=== PATIENT | male | born 1990 | race American Indian/Alaskan Native ===

== ENCOUNTER 2016-07-10 09:01 | Emergency (ER) | payer SELFPAY ==
[2016-07-10 09:32] VITALS: BP 125/83
== END 2016-07-10 09:31 | disposition left against medical advice (07) ==
LOC: ED 09:01
DX: S01.311D Laceration without foreign body of right ear, subsequent encounter (principal); Z53.21 Procedure and treatment not carried out due to patient leaving prior to being seen by health care provider

== ENCOUNTER 2016-08-23 08:37 | Emergency (ER) | payer SELFPAY ==
[2016-08-23 08:47] VITALS: BP 134/80
--- NOTE | 2016-08-23 10:21 | Emergency Department Report ---
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 PT states when he shaves, he breaks out in a rash. PT states he had a shave on Sunday and now he has bumps to his face. PT requesting a note so he does not have to shave for work. MD Complaint: rash -: Gradual, days(s) Location: face Consistency: intermittent Improves with: other (not shaving ) Worsens with: other (after shaving ) Associated Symptoms: rash. denies: fever/chills, nausea/vomiting Treatments Prior to Arrival: none - Related Data Previous Rx's Medication Instructions Recorded Last Taken Type Amoxicillin [Amoxicillin TAB] 875 mg PO BID #14 tablet 02/29/16 Unknown Rx Tobramycin/Dexamethasone [Tobradex 1 - 2 drop OP Q4HR #1 drops.susp 02/29/16 Unknown Rx Eye Drops 0.3/0.1%] Allergies Allergy/AdvReac Type Severity Reaction Status Date / Time shellfish derived Allergy Itching Verified 02/29/16 14:16 ED Review of Systems ROS: Stated complaint: RASH Other details as noted in HPI Constitutional: denies: chills, fever ENT: denies: ear pain, throat pain Gastrointestinal: denies: vomiting Skin: as per HPI, rash ED Past Medical Hx - Past Medical History Previous Medical History?: No - Surgical History Past Surgical History?: Yes Additional Surgical History: Ear - Right - Social History Smoking Status: Never Smoker Substance Use Type: Alcohol - Medications Home Medications: Home Medications Medication Instructions Recorded Confirmed Last Taken Type Amoxicillin [Amoxicillin TAB] 875 mg PO BID #14 tablet 02/29/16 Unknown Rx Tobramycin/Dexamethasone [Tobradex 1 - 2 drop OP Q4HR #1 drops.susp 02/29/16 Unknown Rx Eye Drops 0.3/0.1%] ED Physical Exam - General Limitations: No Limitations General appearance: alert, in no apparent distress - Head Head exam: Present: atraumatic, normocephalic, other (folliculitis noted to miryam mandible ) - ENT ENT exam: Present: normal exam, normal orophraynx, mucous membranes moist, normal external ear exam (scar to R helix ) - Neck Neck exam: Present: normal inspection, full ROM. Absent: tenderness, lymphadenopathy - Respiratory Respiratory exam: Absent: respiratory distress, accessory muscle use - Cardiovascular Cardiovascular Exam: Present: regular rate, normal rhythm - Extremities Exam Extremities exam: Present: normal inspection, full ROM - Back Exam Back exam: Present: normal inspection, full ROM - Neurological Exam Neurological exam: Present: alert, oriented X3 - Psychiatric Psychiatric exam: Present: normal affect, normal mood - Skin Skin exam: Present: warm, dry, other (scattered folliculits to face ) ED Course Vital Signs 08/23/16 08:43 Temperature 98.1 F Pulse Rate 66 Respiratory 18 Rate Blood Pressure 134/80 O2 Sat by Pulse 100 Oximetry - Reevaluation(s) Reevaluation #1: 08/23/16 10:21 PT aware he will need to follow up with PCP for group home excuse. PT verbalizes understanding. - Pulse Oximetry Interpretation Digit-Finger Initial Pulse Oximetry Readin Actions Taken: none ED Medical Decision Making - Differential Diagnosis folliciulits, acne Critical Care Time: No Critical care attestation.: If time is entered above; I have spent that time in minutes in the direct care of this critically ill patient, excluding procedure time. ED Disposition Clinical Impression: Folliculitis Disposition: DISCHARGED TO HOME OR SELFCARE Is pt being admited?: No Does the pt Need Aspirin: No Condition: Stable Instructions: Folliculitis (ED) Additional Instructions: Follow up with PCP for group home work excuse Warm compresses to areas of folliculitis - no shaving at this time. do not pick at skin Referrals: PRIMARY CARE, [Primary Care Provider] - 3-5 Days Forms: Work/School Release Form(ED) Time of Disposition: 10:23
== END 2016-08-23 10:32 | disposition home or self-care (01) ==
LOC: ED 08:37
DX: L73.9 Follicular disorder, unspecified (principal)
CPT/HCPCS: 99281